=== PATIENT | male | born 1955 | race Caucasian/White ===

== ENCOUNTER 2019-11-14 04:47 | Inpatient (IN) ==
--- NOTE | 2019-10-20 11:07 | PAT Medication Instructions ---
Medication Instructions Date of Service October 20, 2019 Home Medications amlodipine 10 mg PO HS atorvastatin 20 mg PO HS cholecalciferol (vitamin D3) [Vitamin D3] 1,000 unit PO QAM doxazosin 2 mg PO HS duloxetine 60 mg PO BID fenofibrate 150 mg PO QPM ferrous sulfate [iron] 325 mg PO BID hydrochlorothiazide 25 mg PO QAM lisinopril 20 mg PO QAM magnesium chloride 64 mg PO DAILY metformin 500 mg PO QAM metoprolol tartrate 25 mg PO BID multivitamin 1 tab PO QAM STOP taking 48 hours before surgery fenofibrate 150 mg PO QPM DO NOT take the morning of surgery cholecalciferol (vitamin D3) [Vitamin D3] 1,000 unit PO QAM ferrous sulfate [iron] 325 mg PO BID hydrochlorothiazide 25 mg PO QAM lisinopril 20 mg PO QAM magnesium chloride 64 mg PO DAILY metformin 500 mg PO QAM multivitamin 1 tab PO QAM Take morning of surgery With a small sip of water, OTHERWISE NOTHING TO EAT OR DRINK AFTER MIDNIGHT: duloxetine 60 mg PO BID metoprolol tartrate 25 mg PO BID Take evening before surgery amlodipine 10 mg PO HS atorvastatin 20 mg PO HS doxazosin 2 mg PO HS duloxetine 60 mg PO BID ferrous sulfate [iron] 325 mg PO BID metoprolol tartrate 25 mg PO BID Other Notes If you have any questions please call us at [phone] or [phone] or [phone] or [phone]
--- NOTE | 2019-10-23 09:14 | History & Physical Report ---
Date of Service October 23, 2019 date of surgery: 11/14/19 Assessment & Plan (1) Arthritis of knee, left: Risks and benefits of procedure discussed in detail today, patient would like to proceed with a Left total knee replacement at [facility] as scheduled. will obtain medical clearance from Dr Serrano prior to surgery as well as obtain PATs at [facility]. Will place on ASA 81mg po bid x 1 month post op, f/u 2 weeks post op for routine post-operative care and x-ray, sooner if having any problems. will make arrangements for HHPT at the time of discharge. At this point in time, has failed conservative measures and would like to proceed with surgical intervention. History of Present Illness Chief Complaint: left knee pain Primary Care Provider: Rubina Serrano Mr Vargas is a 64 year old male who is here for a follow up of left knee pain, presents for PRE-OPERATIVE VISIT, SCHEDULED FOR LEFT KNEE TKA TO BE PERFORMED BY DR. SHELTON ON 11/14/19 @ [facility]. His symptoms occur constantly with intermittent worsening. Currently the patient states that the symptoms are moderate-severe and is described as aching, sharp and throbbing. He rates his current pain as 4/10. The symptoms are aggravated by ascending stairs, descending stairs, daily activities, first steps while awake, kneeling, movement, repetitive activities, sleeping on the affected side, standing, squatting, walking and weight bearing. In addition to left knee pain the patient is also experiencing instability, limping, nighttime awakening, pain, decreased mobility, difficulty bending, difficulty going to sleep, stiffness, tenderness and weakness. He has been treated with a corticosteroid injection as well as Visco in the past on the left side. Patient has had previous therapy. Patient has had prior arthroscopic surgery. Patient has also tried rest, ice, elevation and compression, as well as use of knee brace, cane and walker. Allergies Allergy/AdvReac Type Severity Reaction Status Date / Time adhesive Allergy Unknown SKIN Verified 10/16/19 15:04 IRRITATION sulfamethoxazole Allergy Unknown Seizure Verified 10/16/19 15:04 [From Bactrim] trimethoprim [From Bactrim] Allergy Unknown Seizure Verified 10/16/19 15:04 Home Medications Home Medications Medication Instructions Recorded Confirmed Type amlodipine 10 mg PO HS 10/16/19 10/16/19 History atorvastatin 20 mg PO HS 10/16/19 10/16/19 History cholecalciferol (vitamin D3) 1,000 unit PO QAM 10/16/19 10/16/19 History [Vitamin D3] doxazosin 2 mg PO HS 10/16/19 10/16/19 History duloxetine 60 mg PO BID 10/16/19 10/16/19 History fenofibrate 150 mg PO QPM 10/16/19 10/16/19 History ferrous sulfate [iron] 325 mg PO BID 10/16/19 10/16/19 History hydrochlorothiazide 25 mg PO QAM 10/16/19 10/16/19 History lisinopril 20 mg PO QAM 10/16/19 10/16/19 History magnesium chloride 64 mg PO DAILY 10/16/19 10/16/19 History metformin 500 mg PO QAM 10/16/19 10/16/19 History metoprolol tartrate 25 mg PO BID 10/16/19 10/16/19 History multivitamin 1 tab PO QAM 10/16/19 10/16/19 History Past Med/Surg History Medical History Anxiety Diabetes mellitus, type 2 Heart murmur Hx of gout Hyperlipidemia Hypertension Osteoarthritis Surgical History Hx of amputation LEFT BIG TOE D/T INFECTION Hx of arthroscopic knee surgery Hx of colonoscopy Family History Mother Family history of diabetes mellitus Social History Preferred Language: Kittitian Communication Ability: Effective Beliefs That Will Affect Care: None Current Living Situation: Family Feels Safe at Home: Yes Smoking Status: Never smoker Do You Dip or Chew Tobacco: Yes (1 CAN EVERY 2 DAYS) ; Second Hand Exposure: Yes (OCCASSIONALLY) ; Hx Alcohol Use: Yes Alcohol type: beer Hx Substance Use: No Review of Systems Review of Systems: All systems reviewed & are unremarkable except as noted in HPI & below Constitutional: no fever, no chills and no sweats Respiratory: no cough and no dyspnea Cardiovascular: no chest pain, no dyspnea and no orthopnea Gastrointestinal: no abdominal pain, no nausea and no vomiting Musculoskeletal: as per Subjective / HPI Physical Exam Physical Exam: Ht: 5ft 10in Wt: 81.6kg BP: 100/62 Pulse: 64 Constitutional: WD/WN, vitals as above no acute distress Respiratory: normal respiratory effort, lungs clear to auscultation no respiratory distress, no labored breathing and does not use accessory muscles Cardiovascular: Rate/Rhythm: regular rate and regular rhythm Heart Sounds: normal S1, normal S2 and + murmur (Grade II/ systolic murmur) Gastrointestinal (Abdomen): normal bowel sounds, soft, nontender, no hepatosplenomegaly Musculoskeletal: Knee: + knee abnormal to inspection (left knee), + effusion (+1 effusion), + surgical incision (well healed portals), + limited ROM of knee (ROM 0/3/110), + knee ROM with crepitation, + joint line tenderness (medial joint line) and + Krzysztof's sign positive; no deformity, no skin erythema, no ecchymosis, no valgus laxity, no varus laxity, anterior drawer test negative, Julia's sign negative and pivot shift test negative Results & Data Diagnostic Findings Left Knee X-ray: left knee series confirm advanced degenerative changes to the left knee, greatest medial compartments and patellofemoral joint, showing joint space narrowing, osteophyte formation and subchondral sclerosis. no acute bony pathology noted.
--- NOTE | 2019-10-23 11:41 | Anesthesiology Consultation ---
Date of Service October 23, 2019 Assessment & Plan (1) Encounter for pre-operative examination: - Awaiting review of preop testing (labs, EKG, CXR). - Murmur noted at PAT evaluation. Patient states known hx of murmur s/p unremarkable evaluation with previous ECHO's but patient unsure when/where ECHO's were done. Awaiting surgeon-ordered PCP preop evaluation (Dr. Rubina Serrano) and response to murmur/ECHO request. - Check BSG AM DOS Chart Review Chart Review: Patient seen in Pre Admission Testing Teaching & Discussion Pre-Anesthesia Teaching/Discussion Notes: Instructed NPO after midnight before surgery,except medications with 15 cc of water. Medication instructions provided according to the PAT guidelines. History Surgery Operation Date: 11/14/19 08:35 Proposed Procedures p Left Total Knee Arthroplasty - Noé Colon DO Height/Weight Height: 5 ft 10 in Weight: 75.7 kg Allergies Allergy/AdvReac Type Severity Reaction Status Date / Time adhesive Allergy Unknown skin Verified 10/23/19 11:43 irritation sulfamethoxazole Allergy Unknown Seizure Verified 10/16/19 15:04 [From Bactrim] trimethoprim [From Bactrim] Allergy Unknown Seizure Verified 10/16/19 15:04 Medications Home Medications Medication Instructions Recorded Confirmed Last Taken amlodipine 10 mg PO HS 10/16/19 10/16/19 Unknown atorvastatin 20 mg PO HS 10/16/19 10/16/19 Unknown cholecalciferol (vitamin D3) 1,000 unit PO QAM 10/16/19 10/16/19 Unknown [Vitamin D3] doxazosin 2 mg PO HS 10/16/19 10/16/19 Unknown duloxetine 60 mg PO BID 10/16/19 10/16/19 Unknown fenofibrate 150 mg PO QPM 10/16/19 10/16/19 Unknown ferrous sulfate [iron] 325 mg PO BID 10/16/19 10/16/19 Unknown hydrochlorothiazide 25 mg PO QAM 10/16/19 10/16/19 Unknown lisinopril 20 mg PO QAM 10/16/19 10/16/19 Unknown magnesium chloride 64 mg PO DAILY 10/16/19 10/16/19 Unknown metformin 500 mg PO QAM 10/16/19 10/16/19 Unknown metoprolol tartrate 25 mg PO BID 10/16/19 10/16/19 Unknown multivitamin 1 tab PO QAM 10/16/19 10/16/19 Unknown Past Medical History Medical History Anxiety Diabetes mellitus, type 2 NIDDM Hx of gout Hyperlipidemia Hypertension Osteoarthritis Exercise / Class Metabolic Activity II 4-5 Yardwork/Stairs/Walk up hill Past Family History Family History Mother Family history of diabetes mellitus Past Surgical History Surgical History Hx of amputation LEFT BIG TOE D/T INFECTION Hx of arthroscopic knee surgery UNSURE WHICH SIDE Hx of colonoscopy Past Anesthesia History No Hx of Anesthesia Complications and No Family Hx of Anesthesia Complications History of PONV No Hx of PONV and No Hx of Motion Sickness Social History Smoking Status: Never smoker Do You Dip or Chew Tobacco: Yes (1 CAN EVERY 2 DAYS (ADVISED NPO DOS)) Hx Alcohol Use: Yes Alcohol type: beer alcohol intake frequency: 3 or more drinks per day (0-3 beers/day *(no average amount, some days has no ETOH, some days up to 3 beers)*) Hx Substance Use: No Review of Systems Patient denies chest pain, shortness of breath, dyspnea on exertion, reflux, cough, wheezing, palpitations. Physical Exam Vital Signs VITALS BP 108/64 P 56 TEMP 97.7 SP02 97%RA RESP 20 PHYSICAL Full neck and c-spine range of motion. Full TMJ range of motion. TMD 3 finger breaths Mallampati Score 3 Dentition: several missing teeth Lungs: clear throughout to auscultation Cardiac: regular rate and rhythm, III/ systolic murmur Spine: normal Carotid arteries: negative bruit Extremities: no edema Trimmed troncoso
--- NOTE | 2019-10-23 12:29 | XRay Report ---
XR chest Pre-admission PA/Lat CLINICAL HISTORY: pat preoperative evaluation COMPARISON STUDY: No previous studies for comparison. FINDINGS: The bones soft tissues and hemidiaphragms are normal. The cardiomediastinal silhouette is n ormal. The lungs are clear. The pulmonary vasculature is normal. IMPRESSION: Negative chest. ACT 112: Negative or not required by law. The above report was generated using voice recognition software. It may contain grammatical, syntax or spelling errors. Electronically signed by: Arnaud Emerson M.D. 10/23/2019 12:28 PM
[2019-10-23 13:01] LABS: Basophils # (auto) 0.04 K/uL (0-0.2); Basophils % (auto) 0.4 %; Eosinophils # (auto) 0.22 K/uL (0-0.5); Hematocrit (blood only) 33.7 % (42-52); Hemoglobin 10.9 g/dL (14.0-18.0); Immature Granulocytes # (auto) 0.03 K/uL (0.00-0.02); Immature Granulocytes % (auto) 0.3 %; Lymphocytes # (auto) 1.58 K/uL (1.2-3.4); Lymphocytes % (auto) 14.5 %; Mean Corpuscular Hemoglobin 28.6 pg (25-34); Mean Corpuscular Hgb Conc 32.3 g/dL (32-36); Mean Corpuscular Volume 88.5 fL (80-100); Mean Platelet Volume 9.2 fL (7.4-10.4); Monocytes # (auto) 0.86 K/uL (0.11-0.59); Monocytes % (auto) 7.9 %; Neutrophils % (auto) 74.9 %; Platelet Count 432 K/uL (130-400); RDW Coefficient of Variation 14.2 % (11.5-14.5); RDW Standard Deviation 46.4 fL (36.4-46.3); Red Blood Count 3.81 M/uL (4.7-6.1); White Blood Count 10.93 K/uL (4.8-10.8)
[2019-10-23 13:01] LABS: Appearance Urine Clear (Clear); Bilirubin Urine Negative (Negative); Blood Urine Negative (Negative); Color Urine Yellow; Glucose Urine UA Negative (Negative); Ketones Urine Negative (Negative); Leukocyte Esterase Urine Negative (Negative); Nitrite Urine Negative (Negative); Protein Urine Negative (Negative); Specific Gravity Urine 1.013 (1.000-1.030); Urobilinogen Urine Negative (Negative)
[2019-10-23 13:12] LABS: Estimated Average Glucose 120 mg/dl; Hemoglobin A1C 5.8 % (4.5-5.6)
[2019-10-23 13:17] LABS: INR 1.1 (0.9-1.1); Partial Thromboplastin Time 26.9 Seconds (21.0-31.0); Prothrombin Time 11.4 Seconds (9.0-12.0)
[2019-10-23 13:28] LABS: BUN Creatinine Ratio 22.3 (10-20); Calcium 10.5 mg/dl (8.5-10.1); Creatinine Clr Calc Pharmacy 70.1 ml/min; Est GFR (African American) 81.8; Est GFR (Non-African American) 70.6; Potassium 4.1 mmol/L (3.5-5.1)
[2019-11-14] MEDS ORDERED: FAMOTIDINE 20 MG TAB PO SCH (06:00)
[2019-11-14] MEDS ORDERED: ROPIVACAINE 0.5% HCL/PF 150 MG, BUPIVACAINE 0.5% MPF 30 ML, EPINEPHrine 30MG/30ML (OR U... INSTIL SCH (06:00)
[2019-11-14] MEDS ORDERED: TRANEXAMIC ACID 1,000 MG **IV Intra-op IV SCH (06:00)
[2019-11-14] MEDS ORDERED: ACETAMINOPHEN 500 MG TAB PO SCH (06:00)
[2019-11-14] MEDS ORDERED: LR 15ML/HR IV SCH (06:00)
[2019-11-14] MEDS ORDERED: dexAMETHasone 4 MG TAB PO SCH (06:00)
[2019-11-14] MEDS ORDERED: GABAPENTIN 600 MG DOSE PO SCH (06:00)
[2019-11-14] MEDS ORDERED: TRANEXAMIC ACID 1,000 MG **IV Pre-op IV SCH (06:00)
[2019-11-14] MEDS ORDERED: CEFAZOLIN 1000MG 1,000 MG/7.5 ML SYR IV SCH (06:00)
[2019-11-14] MEDS ORDERED: CeleBREX 200 MG CAP PO SCH (06:00)
[2019-11-14] MEDS ORDERED: BUPIVACAINE/EPINEPHRINE 0.25% 1:200,000 30 ML VIAL ONE (06:28)
[2019-11-14] MEDS ORDERED: BUPIVACAINE 0.5 % 5 MG/1 ML PF 10ML VIAL ONE (06:28)
[2019-11-14] MEDS ORDERED: fentaNYL citrate 100 MCG/2 ML VIAL ONE ×2 (06:41→08:23)
[2019-11-14] MEDS ORDERED: MIDAZOLAM HCL 1 MG/ML 2ML VIAL ONE (06:41)
[2019-11-14] MEDS ORDERED: PROPOFOL IV EMULSION 10 MG/ML 20 ML VIAL IV ONE ×2 (06:49→08:26)
[2019-11-14] MEDS ORDERED: LIDOCAINE HCL 2% 2 ML VIAL/AMP(20MG/ML) INFIL ONE (06:49)
[2019-11-14] MEDS ORDERED: BACITRACIN INJ 50,000 UNIT VIAL ONE (07:06)
[2019-11-14] MEDS ORDERED: ORTHO JOINT ANESTHETIC ONE (07:06)
--- NOTE | 2019-11-14 07:22 | History & Physical Bridge Note ---
Date of Service November 14, 2019 History & Physical Bridge Note I have examined the patient, reviewed the History & Physical and in the interval since the performance of the History & Physical I have noted the following changes of clinical significance: no changes noted
[2019-11-14] MEDS ORDERED: ONDANSETRON INJ 2 MG/ML 2 ML VIAL ONE (08:23)
--- NOTE | 2019-11-14 08:33 | Operative Report ---
Post Operative Report Pre & Post Diagnosis Operation Date: 11/14/19 07:15 Pre-Op Diagnosis: Left Knee Osteoarthritis Post-Op Diagnosis: Left Knee Osteoarthritis I identified the patient and participated in the time-out.: Yes Procedure Operation Date: 11/14/19 07:15 Actual Procedures p Left Total Knee Arthroplasty utilizing [employer] journey 2 patient matched size 6 femur 5 tibia 11 polyethylene 32 oval patella- Noé Colon DO Surgeon Noé Colon DO Galley Worker STEFF Veras Estimated Blood Loss 5 Findings Consistent with Post-Op Diagnosis Patient presents with severe end-stage tricompartmental degenerative joint disease of the left knee no response to conservative management oftt-vr-mepy changes eburnated bone marginal osteophytes subchondral sclerosis and cystic changes with a moderate to large effusion Specimens Bone and cartilage Drains Medium bore Hemovac Complications none Disposition Accompanied Patient To Recovery: No Disposition: Recovery Room Indications Patient presents for left total knee arthroplasty of after failed attempted conservative management attempts at physical therapy relative rest activity modification weight loss corticosteroid injections Visco supplementations of all been nonhelpful patient presents for left total knee arthroplasty the above intraoperative findings noted times surgery Description of Procedure After proper prepping and draping of the left lower extremity anterior midline incision was made over the region of the extensor extensor mechanism after meticulous hemostasis was obtained and maintained in subcutaneous tissues a medial parapatellar incision was made The patella was subluxed lateralward the medial lateral gutter were cleaned from any hypertrophic synovitis and scar tissue of the distal femoral block was placed and the distal femoral osteotomy cut was made subsequently the chamfers anterior and posterior osteotomy cuts were made utilizing the 4-in-1 block the tibia was subsequently subluxed anteriorward medial and ateral meniscal remnants were excised in their entirety remnants of the anterior and posterior cruciate ligaments were excised in their entirety excellent exposure of the proximal tibia was obtained the tibial osteotomy guide was placed on the proximal tibial osteotomy cut was made once again the knee was irrigated with copious amounts of sterile saline solution the patella was subsequently everted lateralward thickened scar tissue around the patella was removed the patella was subsequently cut utilizing a freehand technique and was drilled prepared for final preparation and placement of patella socially flexion-extension gaps were checked and the equal and symmetric trials were placed to the appropriate femoral and tibial trials with poly-spacer being placed for equal flexion and extension gaps and full range of motion including extension to 0 and flexion to 140 the trial components after having been taken to recovery range of motion was subsequently removed meticulous hemostasis was obtained and maintained subsequently a knee block injection of joint cocktail including ropivacaine 0.5% 150 mg. Bupivacaine 0.5% epinephrine 1-200,030 mL's toradol 30 mg dexamethasone 4 mg ketamine 10 mg clonidine 100 micrograms normal saline solution 30 mg was infiltrated into the soft tissues of the posterior knee medial lateral gutters and periosteal synovium special attention was paid to protect neurovascular structures at all times subsequently trial components having been removed the knee was irrigated with sterile saline solution. debris was removed the proximal tibia was subsequently prepared and was made ready for the placement of the tibial component tibial component was also cemented and tamped into position the femoral component was subsequently placed and cemented in the position the patellar component was subsequently cemented in position because hemostasis once again obtained and maintained wound having been thoroughly irrigated with debridement and debridement lavage was performed as well as a medial parapatellar incision closed with #1 Vicryl in interrupted fashion subcutaneous was closed with #2 Vicryl skin was closed with skin clips. PA-C was necessary for prepping and drapping as well as wound closure of deep fascia Sub cutaneous tissue and skin and was necessary for the case. A sterile compressive dressing was placed patient was taken to recovery in stable condition of report dictated by Isaiah I attest to the content of the Intraoperative Record and any orders documented therein. Any exceptions are noted below. I attest to the content of the Intraoperative Record and any orders documented therein. Any exceptions are noted below.
[2019-11-14] MEDS ORDERED: HYDROmorphone INJ 2 MG/ML SYR/VIAL IV PRN (09:20)
[2019-11-14] MEDS ORDERED: ePHEDrine sulfate 50 MG/ML AMP IV PRN (09:20)
[2019-11-14] MEDS ORDERED: fentaNYL citrate 100 MCG/2 ML VIAL IV PRN (09:20)
[2019-11-14] MEDS ORDERED: ONDANSETRON INJ 2 MG/ML 2 ML VIAL IV PRN ×2 (09:20→10:25)
[2019-11-14] MEDS ORDERED: ATROPINE SULFATE 0.1 MG/ML 10ML SYR IV PRN (09:20)
--- NOTE | 2019-11-14 09:59 | XRay Report ---
LEFT KNEE 2 VIEWS History: Left total knee arthroplasty. Degenerative arthritis. Postop. FINDINGS: The patient is status post a left total knee arthroplasty. The hardware is intact. No fract ure or dislocation. Surgical drains are in place. IMPRESSION: Left total knee arthroplasty. No evidence for hardware complication. ACT 112: Negative or not required by law. Electronically signed by: Jay Garcia M.D. 11/14/2019 9:57 AM
--- NOTE | 2019-11-14 10:03 | Anesthesiology Progress Note ---
Date of Service November 14, 2019 Anesthesia Post Procedure Vital Signs Vital Signs: Temp Pulse Pulse Resp BP Pulse Ox 11/14/19 09:55 36.6 C 70 12 105/59 L 96 11/14/19 09:45 71 12 99/58 L 96 11/14/19 09:35 70 14 102/57 L 96 11/14/19 09:25 70 12 101/53 L 96 11/14/19 09:15 76 12 97/52 L 94 11/14/19 09:09 36.7 C 81 12 106/53 L 94 11/14/19 05:33 36.7 C 69 20 134/65 98 Transfer of Care Handoff Completed per policy Notes Mental Status: alert / awake / arousable and participated in evaluation Patient Amnestic to Procedure: Yes Nausea / Vomiting: adequately controlled Pain: adequately controlled Airway Patency, RR, SpO2: stable & adequate BP & HR: stable & adequate Hydration State: stable & adequate Neuraxial Anesthesia: was administered and sensory block is resolving Anesthetic Complications: no major complications apparent and Pt Satisfied with anesthetic care
[2019-11-14] MEDS ORDERED: HYDROmorphone INJ 1 MG/ML SYRINGE IV PRN (10:25)
[2019-11-14] MEDS ORDERED: bisacodyL 10 MG SUPP PR PRN (10:25)
[2019-11-14] MEDS ORDERED: METOCLOPRAMIDE HCL INJ 5 MG/ML 2 ML VIAL IV PRN (10:25)
[2019-11-14] MEDS ORDERED: MAGNESIUM HYDROXIDE SUSP 30 ML UDC PO PRN (10:25)
[2019-11-14] MEDS ORDERED: NALOXONE HCL 0.4 MG/1 ML VIAL/CARP IV PRN (10:25)
[2019-11-14] MEDS ORDERED: PNEUMOCOCCAL POLYSACCHARIDES 25 MCG/0.5 ML VIAL/SYR IM ONE (10:41)
[2019-11-14] MEDS ORDERED: PNEUMOCOCCAL ADMINISTRATION CHARGE ONE (10:41)
[2019-11-14] MEDS: SODIUM CHLORIDE 0.9% 1000ML 1,000 ML IV SCH ×2 (11:07→21:39)
[2019-11-14] MEDS: KETOROLAC TROMETHAMINE 15 MG/ML VIAL IV SCH ×3 (11:08→22:46)
[2019-11-14] MEDS ORDERED: PHARMACY GLYCEMIC MGMT CONSULT PRN (11:10)
[2019-11-14] MEDS ORDERED: GLUCOSE 40% GEL 15 GM TUBE PO PRN (11:30)
[2019-11-14] MEDS ORDERED: GLUCAGON FOR INJ 1 MG VIAL SQ PRN (11:30)
[2019-11-14] MEDS ORDERED: GLUCOSE 10 TABS/TUBE PO PRN (11:30)
[2019-11-14] MEDS ORDERED: NovoLIN-N (NPH) PER UNIT CHARGE SQ SCH (11:30)
[2019-11-14] MEDS ORDERED: CARBOHYDRATES FOR HYPOGLYCEMIA PO PRN (11:30)
[2019-11-14] MEDS ORDERED: DEXTROSE 50% 50 ML SYRINGE IV PRN (11:30)
[2019-11-14] MEDS: ACETAMINOPHEN 500 MG TAB PO SCH ×2 (13:46→21:28)
[2019-11-14] MEDS: INSULIN ASPART 100 UNITS/ML 3 ML PEN SC SCH ×3 (13:47→21:31)
--- NOTE | 2019-11-14 15:33 | Pharmacy Report ---
Glycemic Control Consultation - Date of Service November 14, 2019 - Scope Scope: Glycemic Pharmacist consulted by Arnaud Amos PA-C on 11/14 for glycemic control and to write orders per [facility] inpatient glycemic control protocol - Objective Weight: 77.514 kg Accuchecks BSG (last 24hrs): 11/14/19 11/14/19 11/14/19 05:09 09:14 12:01 POC Glucose 92 189 H 169 H HbA1c: Hemoglobin A1c 5.8 % (4.5-5.6) H 10/23/19 11:58 - Recent Pertinent Medications Outpatient Anti-diabetic Regimen: * metformin 500 mg qAM * A1c = 5.8 % 10/23/19 Risk Factors for Insulin Resistance: * Steroids: 8 mg dexamethasone PO * Infection: * Pressors: * IVF: * Recent Surgery: POD #0 * Diet: T2DM * Mechanical Ventilation: - Assessment & Plan Assessment & Plan: ASSESSMENT: * Mr. Vargas is admitted post-operatively following a L Knee arthroplasty and has a history of type II diabetes currently on metformin outpatient * Received 8 mg dexamethasone PO prior to OR- pre-op BSG 92, post-op 189- will utilize NPH dosed at 0.25 units/kg to prevent hyperglycemia * Will begin novolog with weight based stress of 2 parameters, hold metformin PLAN FOR INPATIENT GLYCEMIC CONTROL: * Holding outpatient oral diabetes medications * Basal insulin * NPH 19 units SQ x1 * Bolus insulin * NovoLog per scale ACHS or Q6hrs while NPO * Goal Range: Low 110 mg/dL - High 140 mg/dL * Correction Factor: 30 mg/dL/unit * Nutritional / Prandial insulin per carb ratio of 1 unit per 10 grams CHO consumed * Please note that the plan above was derived based on current level of insulin resistance and hospital stress. These recommendations are appropriate for inpatient admission only. Plan of care upon discharge will need to be reassessed to avoid potential outpatient hypo/hyperglycemia. Thank you.
[2019-11-14] MEDS: FENOFIBRATE: ORDER AWAITING ACTION SCH ×2 (15:39→22:58)
[2019-11-14] MEDS: CEFAZOLIN 1000MG 1,000 MG/7.5 ML SYR IV SCH ×2 (15:39→22:46)
[2019-11-14] MEDS ORDERED: AMLODIPINE BESYLATE 5 MG TAB PO SCH (21:00)
[2019-11-14] MEDS ORDERED: DOXAZosin MESYLATE TAB 2 MG TAB PO SCH (21:00)
[2019-11-14] MEDS ORDERED: ATORVASTATIN 20 MG TAB PO SCH (21:00)
[2019-11-14] MEDS ORDERED: SENNA 8.6 MG TAB PO SCH (21:00)
[2019-11-14] MEDS: FERROUS SULFATE 325 MG TAB PO SCH (21:27)
[2019-11-14] MEDS: METOPROLOL TARTRATE 25 MG TAB PO SCH (21:27)
[2019-11-14] MEDS: DULOXETINE HCL 60 MG CAP PO SCH (21:27)
[2019-11-14] MEDS: DOCUSATE SODIUM 100 MG CAP PO SCH (21:27)
[2019-11-14] MEDS: ASPIRIN 81 MG ECTAB PO SCH (21:27)
[2019-11-15] MEDS: ACETAMINOPHEN 500 MG TAB PO SCH ×2 (05:15→13:12)
[2019-11-15] MEDS: KETOROLAC TROMETHAMINE 15 MG/ML VIAL IV SCH (05:15)
[2019-11-15 05:43] LABS: Hematocrit (blood only) 27.3 % (42-52); Hemoglobin 9.3 g/dL (14.0-18.0); Mean Corpuscular Hgb Conc 34.1 g/dL (32-36); Mean Corpuscular Volume 88.1 fL (80-100); Mean Platelet Volume 8.5 fL (7.4-10.4); Platelet Count 310 K/uL (130-400); RDW Coefficient of Variation 14.7 % (11.5-14.5); RDW Standard Deviation 47.4 fL (36.4-46.3); White Blood Count 17.26 K/uL (4.8-10.8)
[2019-11-15 06:12] LABS: BUN Creatinine Ratio 20.9 (10-20); Calcium 9.1 mg/dl (8.5-10.1); Creatinine Clr Calc Pharmacy 85.6 ml/min; Est GFR (African American) 104.2; Est GFR (Non-African American) 89.9; Potassium 4.1 mmol/L (3.5-5.1)
--- NOTE | 2019-11-15 08:18 | Anesthesiology Progress Note ---
Date of Service November 15, 2019 Anesthesia Post Procedure Vital Signs Vital Signs: Temp Pulse Pulse Pulse Resp BP Pulse Ox 11/15/19 07:59 36.4 C L 68 16 133/62 97 11/15/19 03:00 36.6 C 81 18 153/76 H 11/14/19 23:25 36.6 C 98 H 16 113/61 97 11/14/19 20:30 60 137/70 11/14/19 19:43 36.7 C 62 16 121/64 97 11/14/19 17:04 36.5 C 68 17 111/59 L 95 11/14/19 13:11 36.8 C 60 16 120/64 97 11/14/19 12:06 55 L 16 114/61 96 11/14/19 11:27 56 L 16 112/57 L 95 11/14/19 10:48 61 16 112/59 L 95 11/14/19 10:15 36.8 C 68 16 109/51 L 68 L 11/14/19 10:05 36.6 C 68 14 105/58 L 96 11/14/19 09:55 36.6 C 70 12 105/59 L 96 11/14/19 09:45 71 12 99/58 L 96 11/14/19 09:35 70 14 102/57 L 96 11/14/19 09:25 70 12 101/53 L 96 11/14/19 09:15 76 12 97/52 L 94 11/14/19 09:09 36.7 C 81 12 106/53 L 94 Pain Intensity Left Knee: Pain Intensity: 7 Notes Mental Status: alert / awake / arousable Patient Amnestic to Procedure: Yes Nausea / Vomiting: adequately controlled Pain: improving with treatment Airway Patency, RR, SpO2: stable & adequate BP & HR: stable & adequate Hydration State: stable & adequate Neuraxial Anesthesia: was administered and sensory block resolved Anesthetic Complications: no major complications apparent
--- NOTE | 2019-11-15 08:30 | Orthopedic Progress Note ---
Date of Service November 15, 2019 Assessment & Plan (1) Arthritis of knee, left: Postop day 1 status post left total knee arthroplasty. Leukocytosis-likely due to surgical stress/preoperative steroids. Currently patient is asymptomatic. PT/OT protocol. Weightbearing as tolerated DVT prophylaxis with aspirin twice daily and SCDs, GERALD hose. Pain management with acetaminophen, IV hydromorphone, oxycodone. DC planning-patient is planning for home health services upon discharge. Subjective Postop day 1 Patient is currently sitting in his chair at the bedside. Nursing is present and has just removed his dressing and drain. His drain had apparently come apart during the night and he had mild to moderate drainage noted on the dressing. After investigating they found the drain to be undone and the drain was removed. Patient currently is feeling well. He denies any shortness of breath, chest pain, lightheadedness. Pain is currently controlled. Physical Exam Physical Exam: Rudolph dressing is clean, dry, and intact. Calves are soft and nontender. Neurovascular is intact. Toes are mobile. He has good dorsiflexion and plantarflexion of his foot and ankle. Results & Data Vital Signs (Past 12 Hours) Vital Signs Temp Pulse Pulse Resp BP Pulse Ox 11/15/19 07:59 36.4 C L 68 16 133/62 97 11/15/19 03:00 36.6 C 81 18 153/76 H 11/14/19 23:25 36.6 C 98 H 16 113/61 97 11/14/19 20:30 60 137/70 Laboratory Results Laboratory Results WBC 17.26 K/uL (4.8-10.8) H 11/15/19 05:26 RBC 3.10 M/uL (4.7-6.1) L 11/15/19 05:26 Hgb 9.3 g/dL (14.0-18.0) L 11/15/19 05:26 Hct 27.3 % (42-52) L 11/15/19 05:26 MCV 88.1 fL (80-100) 11/15/19 05:26 MCH 30.0 pg (25-34) 11/15/19 05:26 MCHC 34.1 g/dL (32-36) 11/15/19 05:26 RDW Std Deviation 47.4 fL (36.4-46.3) H 11/15/19 05:26 RDW Coeff of Rafiq 14.7 % (11.5-14.5) H 11/15/19 05:26 Plt Count 310 K/uL (130-400) 11/15/19 05:26 MPV 8.5 fL (7.4-10.4) 11/15/19 05:26 Immature Gran % (Auto) 0.3 % 10/23/19 11:58 Neut % (Auto) 74.9 % 10/23/19 11:58 Lymph % (Auto) 14.5 % 10/23/19 11:58 Powell % (Auto) 7.9 % 10/23/19 11:58 Eos % (Auto) 2.0 % 10/23/19 11:58 Baso % (Auto) 0.4 % 10/23/19 11:58 Immature Gran # (Auto) 0.03 K/uL (0.00-0.02) H 10/23/19 11:58 Neut # (Auto) 8.20 K/uL (1.4-6.5) H 10/23/19 11:58 Lymph # (Auto) 1.58 K/uL (1.2-3.4) 10/23/19 11:58 Powell # (Auto) 0.86 K/uL (0.11-0.59) H 10/23/19 11:58 Eos # (Auto) 0.22 K/uL (0-0.5) 10/23/19 11:58 Baso # (Auto) 0.04 K/uL (0-0.2) 10/23/19 11:58 PT 11.4 Seconds (9.0-12.0) 10/23/19 11:58 INR 1.1 (0.9-1.1) 10/23/19 11:58 APTT 26.9 Seconds (21.0-31.0) 10/23/19 11:58 PTT Ratio 1.0 10/23/19 11:58 Sodium 139 mmol/L (136-145) 11/15/19 05:26 Potassium 4.1 mmol/L (3.5-5.1) 11/15/19 05:26 Chloride 107 mmol/L (98-107) 11/15/19 05:26 Carbon Dioxide 27 mmol/L (21-32) 11/15/19 05:26 Anion Gap 5.0 (3-11) 11/15/19 05:26 BUN 19 mg/dl (7-18) H 11/15/19 05:26 Creatinine 0.90 mg/dl (0.6-1.4) 11/15/19 05:26 Est Cr Clr Drug Dosing 85.6 ml/min 11/15/19 05:26 Est GFR ( Amer) 104.2 11/15/19 05:26 Est GFR (Non-Af Amer) 89.9 11/15/19 05:26 BUN/Creatinine Ratio 20.9 (10-20) H 11/15/19 05:26 Glucose 140 mg/dl (70-99) H 11/15/19 05:26 POC Glucose 166 mg/dl (70-99) H 11/15/19 08:09 Estimat Average Glucose 120 mg/dl 10/23/19 11:58 Hemoglobin A1c 5.8 % (4.5-5.6) H 10/23/19 11:58 Calcium 9.1 mg/dl (8.5-10.1) 11/15/19 05:26 Albumin 4.0 gm/dl (3.4-5.0) 10/23/19 11:58 Urine Color Yellow 10/23/19 Unknown Urine Appearance Clear (Clear) 10/23/19 Unknown Urine pH 5.0 (4.5-7.5) 10/23/19 Unknown Ur Specific [place] 1.013 (1.000-1.030) 10/23/19 Unknown Urine Protein Negative (Negative) 10/23/19 Unknown Urine Glucose (UA) Negative (Negative) 10/23/19 Unknown Urine Ketones Negative (Negative) 10/23/19 Unknown Urine Blood Negative (Negative) 10/23/19 Unknown Urine Nitrite Negative (Negative) 10/23/19 Unknown Urine Bilirubin Negative (Negative) 10/23/19 Unknown Urine Urobilinogen Negative (Negative) 10/23/19 Unknown Ur Leukocyte Esterase Negative (Negative) 10/23/19 Unknown Blood Type A Positive 10/23/19 11:58 Antibody Screen NEGATIVE 10/23/19 11:58
[2019-11-15] MEDS ORDERED: NovoLIN-N (NPH) PER UNIT CHARGE SQ ONE (08:45)
[2019-11-15] MEDS: FENOFIBRATE: ORDER AWAITING ACTION SCH (08:49)
[2019-11-15] MEDS: DULOXETINE HCL 60 MG CAP PO SCH (08:49)
[2019-11-15] MEDS: DOCUSATE SODIUM 100 MG CAP PO SCH (08:49)
[2019-11-15] MEDS: METOPROLOL TARTRATE 25 MG TAB PO SCH (08:50)
[2019-11-15] MEDS: ASPIRIN 81 MG ECTAB PO SCH (08:50)
[2019-11-15] MEDS: FERROUS SULFATE 325 MG TAB PO SCH (08:50)
[2019-11-15] MEDS: OXYCODONE HCL IR 5 MG TAB (IMMEDIATE RELEASE) PO PRN ×2 (08:52→13:13)
[2019-11-15] MEDS: INSULIN ASPART 100 UNITS/ML 3 ML PEN SC SCH ×2 (08:57→13:17)
[2019-11-15] MEDS ORDERED: lisinopriL 20 MG TAB PO SCH (09:00)
[2019-11-15] MEDS ORDERED: CHOLECALCIFEROL 1,000 UNITS 25 MCG TAB PO SCH (09:00)
[2019-11-15] MEDS ORDERED: MAGNESIUM CHLORIDE 64MG DELAYED REL TAB PO SCH (09:00)
[2019-11-15] MEDS ORDERED: MULTIVITAMIN TAB PO SCH (09:00)
--- NOTE | 2019-11-15 15:12 | Pharmacy Report ---
Pharmacy Glycemic Short Note 2 - Date of Service November 15, 2019 - Glycemic Short BSG Results (Last 24 hours): 11/14/19 11/14/19 11/15/19 17:11 21:02 05:26 Glucose 140 H POC Glucose 163 H 148 H 11/15/19 11/15/19 08:09 12:20 Glucose POC Glucose 166 H 167 H OUTPATIENT ANTIDIABETIC REGIMEN: * metformin 500 mg qAM ASSESSMENT: * Mr. Vargas received 31 units of insulin yesterday, 19 units of NPH, 12 units of prandial/correction with adequate BSGs (92-189) * Fasting this morning 140, additional 0.13 units/kg of NPH with breakfast, anticipate steroid to be wearing off * Continue current novolog parameters PLAN FOR INPATIENT GLYCEMIC CONTROL: * Hold outpatient oral diabetes medications * Basal insulin * NPH 10 units x 1 * Bolus insulin * NovoLog per scale ACHS or Q6hrs while NPO * Goal Range: Low 110 mg/dL - High 140 mg/dL * Correction Factor: 30 mg/dL/unit * Nutritional / Prandial insulin per carb ratio of 1 unit per 10 grams CHO consumed PLAN FOR DISCHARGE: * Patient's A1c 5.8% at goal. Can consider titrating metformin dose up to 2,000 mg/day if tolerated.
--- NOTE | 2019-11-17 08:23 | Discharge Summary ---
Date of Service Date of discharge: November 16, 2019 date of admission: 11/15/19 Admission HPI Per Admitting Provider Mr Vargas is a 64 year old male who is here for a follow up of left knee pain, presents for PRE-OPERATIVE VISIT, SCHEDULED FOR LEFT KNEE TKA TO BE PERFORMED BY DR. COLON ON 11/14/19 @ [facility]. His symptoms occur constantly with intermittent worsening. Currently the patient states that the symptoms are moderate-severe and is described as aching, sharp and throbbing. He rates his current pain as 4/10. The symptoms are aggravated by ascending stairs, descending stairs, daily activities, first steps while awake, kneeling, movement, repetitive activities, sleeping on the affected side, standing, squatting, walking and weight bearing. In addition to left knee pain the patient is also experiencing instability, limping, nighttime awakening, pain, decreased mobility, difficulty bending, difficulty going to sleep, stiffness, tenderness and weakness. He has been treated with a corticosteroid injection as well as Visco in the past on the left side. Patient has had previous therapy. Patient has had prior arthroscopic surgery. Patient has also tried rest, ice, elevation and compression, as well as use of knee brace, cane and walker. Principal Diagnosis left knee arthritis Discharge Exam Vital Signs Temp 36.6 C 11/15/19 14:00 Pulse 81 11/15/19 14:00 Resp 18 11/15/19 14:00 BP 101/55 L 11/15/19 14:00 Pulse Ox 97 11/15/19 14:00 Constitutional WD/WN, vitals as above no acute distress Musculoskeletal Left knee: NVDI, calf SNT, negative mini sign. DP palpable, able to wiggle toes/ankle movement without difficulty. NEDRA dressing clean dry and intact. expected post-operative bruising noted. Discharge Data Allergies Allergy/AdvReac Type Severity Reaction Status Date / Time adhesive Allergy Unknown skin Verified 11/14/19 05:25 irritation sulfamethoxazole Allergy Unknown Seizure Verified 11/14/19 05:25 [From Bactrim] trimethoprim [From Bactrim] Allergy Unknown Seizure Verified 11/14/19 05:25 Consultations 11/14/19 10:25 Consult Case Management - Discharge Planning Routine Procedures Performed Operation Date: 11/14/19 07:15 Actual Procedures p Left Total Knee Arthroplasty(Left) - Noé Colon DO Ordered Studies 11/14/19 05:00 US - OR guided needle placemen Routine Hospital Course (1) Arthritis of knee, left: Postop day 1 status post left total knee arthroplasty. Leukocytosis-likely due to surgical stress/preoperative steroids. Currently patient is asymptomatic. PT/OT protocol. Weightbearing as tolerated DVT prophylaxis with aspirin twice daily and SCDs, GREALD hose. Pain management with acetaminophen, IV hydromorphone, oxycodone. DC planning-patient is planning for home health services upon discharge. Total Time Total Time Spent Total Time Spent (In Minutes): 20 Total Time Includes: Examination of the Patient, Discharge Planning and Medication Reconciliation Discharge Plan Discharge Items Patient Disposition: Home - Home Health Services Reason For Visit: LEFT KNEE OSTEOARTHRITIS Discharge Diagnosis: left total knee replacement Activity: Per Instructions section Weightbearing: Full weightbearing Weightbearing Comment: With walker Non-emergency contact: Surgeon Call non-emergency contact if: your pain is not controlled, your temperature is above 101.5, your wound has increased redness and your wound has increased drainage Follow-up/Referrals: Rubina Serrano M.D. [Primary Care Provider] - Diet: Carb Consistent or DM2 Addtl Attending Provider Instructions: ACTIVITY RECOMMENDATIONS: SELF CARE INSTRUCTIONS AFTER TOTAL KNEE REPLACEMENT A. You may need to continue a physical therapy program after discharge from the hospital. There are several options available to you. Your doctor will assist you in selecting the best one for you. 1. An out-patient facility 2 to 3 times a week for therapy or home therapy. 2. Continue working on all exercises taught to you in the hospital. Your goals should be to increase bending of your knee to 90 degrees and beyond and to fully straighten your knee. B. You may progress at your own pace from walking with a walker or crutches to a cane; then to no assistive devices. C. Make walking a part of your daily routine. Be up as much as comfortable with rest periods throughout the day. Rest with leg elevation is very important. Use the ice wrap frequently for the first 3-4 weeks. D. There are no restrictions on activities. You may ride in a car, shop, participate in vehicle leasing and rental manager and all social activities. E. Wear the long elastic stockings (GERALD hose) 20 hours a day for 2 weeks after surgery. They can be removed several times a day for laundering and for a bath. F. You may shower, no tub baths until cleared by your doctor. SPECIAL CARE INSTRUCTIONS: VERY IMPORTANT TO READ AND REVIEW A. There are a few signs you need to watch for after you are home. Call [facility] if you notice any of the followin. Increased severe knee pain. Some pain is expected especially when you exercise. 2. Increased swelling in your leg or knee; pain or swelling of the calf muscle in either lower leg. 3. Any fluid drainage from the incision. 4. Shortness of breath or chest pain. B. Please call [facility] at if you have any concerns or questions about your operation or recovery. The doctor or his nurse will return your call promptly. C. You must take antibiotics before dental work, bladder, bowel or other surgery. Your doctor will provide you with a permanent care to carry describing this precaution. IMPORTANT: * REMEMBER TO TAKE ASPIRIN, 81 MG, TWICE DAILY FOR 4 WEEKS UNLESS OTHERWISE DIRECTED. THIS IS YOUR BLOOD THINNER. * HIGH RISK PATIENTS MAY BE PRESCRIBED A STRONGER BLOOD THINNER. THIS WILL BE PROVIDED AT DISCHARGE. * CALL IF INCREASED PAIN, REDNESS, DRAINAGE OR FEVER GREATER THAT 101. * WEAR GERALD HOSE 20 HOURS PER DAY FOR 2 WEEKS. * NEDRA Dressing- This is a large suction dressing covering your incision. This will help pull any excess drainage from the wound and allow your incision to heal properly. You may shower with this if you can keep the unit outside of the shower. If any bleeding or leakage is noted please call your doctor's office. This will remain on your incision for 7 days and then should be removed. This can be done yourself or by the home nursing staff if applicable. The entire unit is disposable once removed. Once removed, keep incision clean and dry. If redness or drainage is noted, please call your surgeon. once removed, follow these instructions: DERMABOND Prineo- This is a mesh tape dressing that is covered with glue. It should remain in place until the incision is properly healed, usually 10-14 days. This dressing is designed to naturally slough off. You may trim the excess mesh tape as it peels off. Incision may be briefly wet in a shower. Dry immediately by blotting with a clean, dry towel. Do not bath or swim until instructed by your doctor. Do not scratch, rub, or pick at the dressing. Do not apply any topical ointments or lotions until dressing is completely removed and/or instructed by your doctor. There may be a small piece of suture material at one end of your incision. Do not pull or trim this. If it is bothersome or catching on clothing, you may cover it with a band-aid. IF INCISION IS LEAKING THROUGH DRESSING, CALL THE OFFICE . FOLLOW UP VISIT: If appointment is not already scheduled: Please call [facility] [place] to make a follow-up appointment for 2 weeks after your surgery at . Pending Studies at Discharge: Yes Studies:: pathology report Stand-Alone Forms: My [facility] [employer] Sales, Opioid Pain Management, Smoking Cessation Medications and DC Order Prescriptions: New sennosides [Senokot] 8.6 mg Tablet 17.2 mg PO HS Qty: 30 RF: 0 aspirin [Ecotrin Low Strength] 81 mg Tablet,Delayed Release (Dr/Ec) 81 mg PO BID 30 Days Qty: 60 RF: 0 acetaminophen 500 mg Tablet 1,000 mg PO Q8 14 Days Qty: 84 RF: 0 cefadroxil 500 mg capsule 500 mg PO BID Qty: 28 RF: 1 oxycodone 5 mg Tablet 5 mg PO Q4H MDD 6 tabs PRN (Reason: pain) Qty: 30 RF: 0 Continued multivitamin Tablet 1 tab PO QAM RF: 0 metformin 500 mg Tablet 500 mg PO QAM RF: 0 atorvastatin 20 mg Tablet 20 mg PO HS RF: 0 lisinopril 20 mg Tablet 20 mg PO QAM RF: 0 amlodipine 10 mg Tablet 10 mg PO HS RF: 0 ferrous sulfate [iron] 325 mg (65 mg iron) Tablet 325 mg PO BID RF: 0 hydrochlorothiazide 25 mg Tablet 25 mg PO QAM RF: 0 doxazosin 2 mg Tablet 2 mg PO HS RF: 0 metoprolol tartrate 25 mg Tablet 25 mg PO BID RF: 0 duloxetine 60 mg Capsule,Delayed Release(Dr/Ec) 60 mg PO BID RF: 0 cholecalciferol (vitamin D3) [Vitamin D3] 25 mcg (1,000 unit) Tablet 1,000 unit PO QAM RF: 0 fenofibrate 150 mg Capsule 150 mg PO QPM RF: 0 magnesium chloride 64 mg Tablet,Delayed Release (Dr/Ec) 64 mg PO DAILY RF: 0 Discharge Orders: Discharge Order (Routine); Ordered 11/15/19 Ordered By: Demetris Combs Admission Data Admit Date/Time: 11/14/19 09:22 Attending Provider: Noé Colon Admit Provider: Noé Colon Primary Care Provider: Rubina Serrano Other Interventions: Discharge Summary Assessment (RN) Last Done: 11/15/19 14:00 DC Date/Time DO NOT enter until pt leaves facility: 11/15/19 15:45
== END 2019-11-15 15:45 | disposition home health service (06) | DRG 470 ==
LOC: ASU 04:47 → 3E 09:22